=== PATIENT | male | born 1945 | race American Indian/Alaskan Native ===

== ENCOUNTER 2017-07-31 08:26 | Emergency (ER) | payer MEDICARE ==
[2017-07-31] MEDS ORDERED: GEODON IM ONE (09:05)
--- NOTE | 2017-07-31 09:05 | Emergency Department Report ---
ED Seizure HPI - General Chief Complaint: Seizure Stated Complaint: SEIZURE/COMBATIVE Time Seen by Provider: 07/31/17 08:59 Source: EMS Mode of arrival: Stretcher Limitations: Other - History of Present Illness Initial Comments: Patient is a 72-year-old [place] male with past medical history of hypertension and traumatic brain injury with seizures who presented with seizure activity today. Patient was noted by family to have a tonic-clonic seizure and paramedics were called. Patient was given 2 Versed in route. Patient is a poor historian secondary to his history of traumatic brain injury and is limited in to give history. MD Complaint: seizure -: This morning Description of Episode: tonic-clonic movement Witnessed:: Yes Trauma: No Seizure History: known seizure disorder Place: home Possible Precipitating Event: none Associated Symptoms: denies: fever/chills Treatments Prior to Arrival: benzodiazepines - Related Data Home Medications Medication Instructions Recorded Confirmed Last Taken Cyanocobalamin/Folic Acid [Vitamin 1 each PO DAILY 07/07/14 05/01/16 03/24/15 B37-Nckzd Acid Tablet] Lisinopril [Zestril] 20 mg PO QDAY 07/07/14 05/01/16 03/24/15 Memantine [Namenda] 5 mg PO QDAY 07/07/14 05/01/16 03/24/15 OLANzapine [ZyPREXA] 5 mg PO Q6H PRN 07/07/14 05/01/16 03/24/15 amLODIPine [Norvasc] 5 mg PO DAILY 07/07/14 05/01/16 03/24/15 Potassium Chloride [K-Dur] 10 meq PO QDAY 03/24/15 05/01/16 03/24/15 levETIRAcetam [Keppra ORAL LIQ] 10 ml PO Q12H 05/01/16 05/01/16 Unknown Allergies Allergy/AdvReac Type Severity Reaction Status Date / Time No Known Allergies Allergy Unverified 05/21/13 17:52 ED Review of Systems ROS: Stated complaint: SEIZURE/COMBATIVE Other details as noted in HPI Comment: Unobtainable due to pts medical conditions ED Past Medical Hx - Past Medical History Previous Medical History?: Yes Hx Hypertension: Yes Hx Seizures: Yes Hx Dementia: Yes Additional medical history: TBI - Surgical History Past Surgical History?: Yes Additional Surgical History: brain surgery secondary to head injury - Social History Smoking Status: Unknown if ever smoked - Medications Home Medications: Home Medications Medication Instructions Recorded Confirmed Last Taken Type Cyanocobalamin/Folic Acid [Vitamin 1 each PO DAILY 07/07/14 05/01/16 03/24/15 History B38-Qapse Acid Tablet] Lisinopril [Zestril] 20 mg PO QDAY 07/07/14 05/01/16 03/24/15 History Memantine [Namenda] 5 mg PO QDAY 07/07/14 05/01/16 03/24/15 History OLANzapine [ZyPREXA] 5 mg PO Q6H PRN 07/07/14 05/01/16 03/24/15 History amLODIPine [Norvasc] 5 mg PO DAILY 07/07/14 05/01/16 03/24/15 History Potassium Chloride [K-Dur] 10 meq PO QDAY 03/24/15 05/01/16 03/24/15 History levETIRAcetam [Keppra ORAL LIQ] 10 ml PO Q12H 05/01/16 05/01/16 Unknown History ED Physical Exam - General Limitations: Other General appearance: alert, in no apparent distress, other (yelling, but will localize to voice) - Head Head exam: Present: atraumatic, normocephalic - Eye Eye exam: Present: normal appearance - ENT ENT exam: Present: mucous membranes moist - Neck Neck exam: Present: normal inspection - Respiratory Respiratory exam: Present: normal lung sounds bilaterally. Absent: respiratory distress, wheezes, rales, rhonchi, stridor - Cardiovascular Cardiovascular Exam: Present: regular rate, normal rhythm. Absent: systolic murmur, diastolic murmur, rubs, gallop - GI/Abdominal GI/Abdominal exam: Present: soft, normal bowel sounds. Absent: distended, tenderness, guarding, rebound - Rectal Rectal exam: Present: deferred - Extremities Exam Extremities exam: Present: normal inspection - Back Exam Back exam: Present: normal inspection - Neurological Exam Neurological exam: Present: alert, altered - Psychiatric Psychiatric exam: Present: normal affect, agitated - Skin Skin exam: Present: warm, dry, intact, normal color. Absent: rash ED Course Vital Signs 07/31/17 07/31/17 08:57 09:05 Temperature 98.3 F Pulse Rate 83 Respiratory 22 16 Rate Blood Pressure 132/92 [Left] O2 Sat by Pulse 97 100 Oximetry ED Medical Decision Making - Lab Data Result diagrams: 07/31/17 08:57 07/31/17 08:57 - Medical Decision Making Patient monitored and was loaded with Keppra. No further seizure activity seen. Patient's family did arrive and states that his mental status is at baseline Critical care attestation.: If time is entered above; I have spent that time in minutes in the direct care of this critically ill patient, excluding procedure time. ED Disposition Clinical Impression: Breakthrough seizure Disposition: DC-01 TO HOME OR SELFCARE Is pt being admited?: No Does the pt Need Aspirin: No Condition: Fair Instructions: Epilepsy (ED)
[2017-07-31] MEDS ORDERED: KEPPRA 1,000 MG/NS 0.75% 100ML 1,000 MG/100 ML BAG IV ONE (09:06)
[2017-07-31 09:33] VITALS: BP 132/92
[2017-07-31 11:14] LABS: Hemoglobin 13.9 gm/dl (11.8-15.2); Mean Corpuscular HGB Conc 32 % (32-34); Mean Corpuscular Volume 78 fl (84-94); Platelet Count 208 K/mm3 (140-440); Red Blood Count 5.61 M/mm3 (3.65-5.03); Red Cell Distribution Width 14.9 % (13.2-15.2)
[2017-07-31] MEDS ORDERED: TORADOL IV ONE (11:22)
[2017-07-31 11:27] LABS: Mean Corpuscular Hemoglobin 25 pg (28-32)
[2017-07-31 11:33] LABS: BUN/Creatinine Ratio 23; Blood Urea Nitrogen 14 mg/dL (9-20); Calcium 9.1 mg/dL (8.4-10.2); Hemolysis Index 6
== END 2017-07-31 13:19 | disposition home or self-care (01) ==
LOC: ED 08:26
DX: G40.909 Epilepsy, unspecified, not intractable, without status epilepticus (principal); I10 Essential (primary) hypertension; F03.90 Unspecified dementia, unspecified severity, without behavioral disturbance, psychotic disturbance, mood disturbance, and anxiety
CPT/HCPCS: 36415; 80048; 85027; 96365; 96366; 96372; 96375; 99284; J1885; J1953; J3486